=== PATIENT | female | born 1990 | race African-American/Black ===

== ENCOUNTER 2023-12-14 09:52 | Inpatient (IN) | payer OTHER ==
[2023-12-14 11:26] VITALS: BMI 34.0
[2023-12-14] MEDS: ELECTROLYTE-148 SOLN 1,000 ML IV ONE (11:30)
[2023-12-14] MEDS: ELECTROLYTE-148 SOLN 1,000 ML IV SCH (12:40)
[2023-12-14] MEDS: CITRIC ACID/SODIUM CITRATE 30 ML UNIT-DOSE CUP PO ONE (13:07)
[2023-12-14] MEDS ORDERED: ONDANSETRON 4 MG/2 ML VIAL IVPUSH PRN (13:30)
[2023-12-14] MEDS ORDERED: ACETAMINOPHEN 325 MG TABLET (FP) PO PRN (13:30)
[2023-12-14] MEDS ORDERED: morphine SULFATE/PF 1 MG/2 ML (2cc Syringe - QUVA) ONE (14:17)
[2023-12-14] MEDS ORDERED: SODIUM CHLORIDE 0.9% P/F 10 ML VIAL IJ ONE (14:18)
[2023-12-14] MEDS ORDERED: ceFAZolin SODIUM 1 GM VIAL ONE (14:18)
[2023-12-14] MEDS ORDERED: PHENYLEPHRINE HCL 10 MG/1 ML SINGLE DOSE VIAL ONE (14:31)
[2023-12-14] MEDS ORDERED: OXYTOCIN 10 UNITS/ML VIAL ONE ×2 (14:44→15:12)
[2023-12-14] MEDS ORDERED: ONDANSETRON 4 MG/2 ML VIAL ONE (15:11)
[2023-12-14] MEDS ORDERED: METHYLERGONOVINE MALEATE 0.2 MG/1 ML AMP IM PRN (16:04)
[2023-12-14] MEDS ORDERED: ACETAMINOPHEN 1000 MG/100 ML BAG IVPB PRN (16:07)
[2023-12-14] MEDS ORDERED: OXYTOCIN 20 UNITS in 0.9% NS 20 UNIT/1,000 ML INFUS.BAG IV ONE (17:21)
[2023-12-14] MEDS: OXYTOCIN 20 UNITS in 0.9% NS 20 UNIT/1,000 ML INFUS.BAG IV SCH (17:55)
[2023-12-14] MEDS: IBUPROFEN 800 MG/8 ML IJ IVPB PRN (20:02)
[2023-12-15] MEDS ORDERED: oxyCODONE HCL 5 MG TABLET PO PRN (04:04)
[2023-12-15 07:06] LABS: BASO % 0.7 % (0-2.0); HEMATOCRIT 27.5 % (32.4-45.2); LYMPH % 13.2 % (8-40); MCH 21.3 pg (25.7-33.7); MCHC 32.8 g/dl (32.0-36.0); MEAN CELL VOLUME 64.9 fl (80-96); MEAN PLT VOLUME 8.2 fl (7.5-11.1); MONO % 5.9 % (3.8-10.2); NEUT % 79.2 % (42.8-82.8); PLATELET COUNT 191 10^3/uL (134-434); RBC 4.23 M/mm3 (3.60-5.2); RDW 24.4 % (11.6-15.6); WHITE BLOOD COUNT 12.2 K/mm3 (4.0-10.0)
[2023-12-15] MEDS: ACETAMINOPHEN 325 MG TABLET (FP) PO PRN (09:31)
[2023-12-15] MEDS: FERROUS SO4 325 MG TABLET (FP) PO SCH (09:31)
[2023-12-15] MEDS: PRENATAL VITAMINS W/ FOLIC ACID TABLET (FP) PO SCH (09:31)
[2023-12-15 14:53] VITALS: RESP 18
[2023-12-15] MEDS: IBUPROFEN 600 MG TABLET (FP) PO PRN (15:05)
[2023-12-15] MEDS: SIMETHICONE 80 MG TAB.CHEW (FP) PO PRN (15:06)
[2023-12-15] MEDS ORDERED: BISACODYL 10 MG SUPP.RECT RC PRN (16:04)
[2023-12-15] MEDS: morphine SULFATE/PF 1 MG/2 ML (2cc Syringe - QUVA) EP ONE (19:56)
[2023-12-16] MEDS: oxyCODONE HCL 5 MG TABLET PO PRN (00:13)
[2023-12-16] MEDS ORDERED: BENZOCAINE 28 GM HEMORRHOIDAL OINTMENT RC PRN (18:48)
[2023-12-16] MEDS: SENNOSIDES/DOCUSATE COMBO (SENNA PLUS) TABLET (UD) PO PRN (21:52)
[2023-12-17 09:26] VITALS: BP 110/69; PULSE 83; TEMP 98.5
== END 2023-12-17 13:45 | disposition home or self-care (01) | DRG 540 ==
LOC: JLDR 09:52 → J3W 17:59
PROVIDERS: ADMIT Obstetrics & Gynecology; ATTEND Obstetrics & Gynecology
PROC: 10D00Z1 Extraction of Products of Conception, Low, Open Approach (ICD-10-PCS; principal; 2023-12-14)
PROC: 0UL70ZZ Occlusion of Bilateral Fallopian Tubes, Open Approach (ICD-10-PCS; 2023-12-14)
DX: O48.0 Post-term pregnancy (principal); Z3A.41 41 weeks gestation of pregnancy; O36.63X0 Maternal care for excessive fetal growth, third trimester, not applicable or unspecified; O24.420 Gestational diabetes mellitus in childbirth, diet controlled; Z37.0 Single live birth; Z30.2 Encounter for sterilization
CPT/HCPCS: 36415; 36430; 80053; 82962; 85025; 85610; 85730; 86780; 86850; 86900; 86901; 86922; 87389; 88302-TC; 88307-TC; 94010; P9038; P9058